=== PATIENT | female | born 1945 | race Caucasian/White ===

== ENCOUNTER → 2018-09-04 | Outpatient (CLI) | payer MEDICARE, OTHER ==
--- NOTE | 2018-09-04 17:16 | RAD ---
Chest, PA and Lateral: Technique: PA and lateral views of the chest were obtained. History: Chronic bronchitis. Comparison: 12/30/2014. Findings: The cardiomediastinal silhouette grossly appears unremarkable. Diffuse prominent appearing bilateral interstitial lung markings. Mild degenerative changes thoracic spine. IMPRESSION: Diffuse prominent appearing bilateral interstitial lung markings likely chronic interstitial changes. Electronically signed by: Rafael Huntley MD (09/04/2018 5:14 PM) [id number]
== END | disposition home or self-care (01) ==
LOC: RAD 13:15
PROVIDERS: ATTEND Family Medicine
DX: J44.1 Chronic obstructive pulmonary disease with (acute) exacerbation (principal)
CPT/HCPCS: 71046

== ENCOUNTER → 2019-01-07 | Outpatient (CLI) | payer MEDICARE, OTHER ==
--- NOTE | 2019-01-08 10:50 | KCIC ---
CT CHEST WO CONTRAST History: COPD. Shortness of air. Technique: Noncontrast CT of the chest was performed. Coronal and sagittal reconstructions were performed. Exposure: One or more of the following individualized dose reduction techniques were utilized for this examination: 1. Automated exposure control 2. Adjustment of the mA and/or kV according to patient size 3. Use of iterative reconstruction technique. Comparison: April 22, 2015. Findings: Chest: No pathologic axillary, mediastinal or hilar adenopathy. Coronary artery calcifications. Atheromatous calcifications throughout the aorta, unchanged. No consolidation or pleural effusion. Moderate centrilobular emphysema. 1.0 x 0.7 cm right lower lobe pleural-based nodule, unchanged compared to prior. Upper abdomen: The imaged upper abdomen is unremarkable. Bones: No pathologic osseous lesions. Impression: 1. No acute intrathoracic pathology. 2. Moderate pulmonary emphysema. 3. Unchanged right lower lobe pulmonary nodule, likely benign given stability. Electronically signed by: Harrison Munguia DO (01/08/2019 10:47 AM) [facility]
== END | disposition home or self-care (01) ==
LOC: KCIC CT 13:38
PROVIDERS: ATTEND Family Medicine
DX: J43.2 Centrilobular emphysema (principal); R91.1 Solitary pulmonary nodule; I70.0 Atherosclerosis of aorta; I10 Essential (primary) hypertension; F17.200 Nicotine dependence, unspecified, uncomplicated
CPT/HCPCS: 71250

== ENCOUNTER → 2019-07-09 | Outpatient (CLI) | payer MEDICARE, OTHER ==
--- NOTE | 2019-07-09 13:00 | RAD ---
CHEST PA LATERAL Technique: PA and lateral views of the chest were obtained. Clinical History: COPD Comparison: September 04, 2018. Findings: The lungs are hyperinflated. The heart is normal in size. The pulmonary vessels appear normal. Is increased reticular opacities throughout the lungs. Impression: 1. Hyperinflation consistent with COPD. 2. Chronic pulmonary fibrosis. 3. Stable appearance of the chest. Electronically signed by: Rocael Salmon III, MD (07/09/2019 12:57 PM) [id number]
== END | disposition home or self-care (01) ==
LOC: RAD 12:19
PROVIDERS: ATTEND Family Medicine
DX: J84.10 Pulmonary fibrosis, unspecified (principal); J44.9 Chronic obstructive pulmonary disease, unspecified
CPT/HCPCS: 71046

== ENCOUNTER → 2021-05-19 | Outpatient (CLI) | payer MEDICARE, OTHER ==
--- NOTE | 2021-05-21 08:32 | KCIC ---
EXAM: Cervical spine, 3 views. HISTORY: Radiculopathy. Pain. COMPARISON: None. FINDINGS: 3 views of the cervical spine are obtained. There is cervical kyphosis. There is degenerati ve endplate remodeling with disc space narrowing, osteophytosis and facet arthropathy at all levels. There is no convincing acute or subacute fracture or suspicious osseous lesion. IMPRESSION: 1. Severe multilevel degenerative change involving the cervical spine. 2. No acute osseous finding. Electronically signed by: Archana Fitch MD (05/21/2021 8:29 AM) [facility]
== END ==
LOC: KCIC 14:45
PROVIDERS: ATTEND Family Medicine
DX: M47.22 Other spondylosis with radiculopathy, cervical region (principal); M48.02 Spinal stenosis, cervical region; M25.78 Osteophyte, vertebrae; M40.202 Unspecified kyphosis, cervical region
CPT/HCPCS: 72040